=== PATIENT | female | born 1945 | race Caucasian/White ===

== ENCOUNTER → 2018-01-23 | Outpatient (REF) | payer MEDICARE, MEDICAID ==
[2018-01-23 14:43] LABS: ALBUMIN 3.8 GM/DL (3.2-5.2); ALBUMIN/GLOBULIN RATIO 1.09 (1.00-1.93); ALKALINE PHOSPHATASE 103 U/L (45-117); ALT/SGPT 30 U/L (12-78); ANION GAP 10 MEQ/L (8-16); AST/SGOT 28 U/L (7-37); BILIRUBIN,TOTAL 0.6 MG/DL (0.2-1.0); BLOOD UREA NITROGEN 39 MG/DL (7-18); CALCIUM LEVEL 8.8 MG/DL (8.8-10.2); CARBON DIOXIDE LEVEL 26 MEQ/L (21-32); CHLORIDE LEVEL 103 MEQ/L (98-107); CHOLESTEROL LEVEL 144 MG/DL (<200); CHOLESTEROL RISK RATIO 5.538 (<5); CREATININE FOR GFR 3.59 MG/DL (0.55-1.30); GLOMERULAR FILTRATION RATE 13.3 (>39); GLUCOSE, FASTING 83 MG/DL (70-100); HDL CHOLESTEROL 26 MG/DL (>40); LDL CHOLESTEROL 59.8 MG/DL (<100); NON-HDL-C 118 MG/DL; POTASSIUM SERUM 4.6 MEQ/L (3.5-5.1); SODIUM LEVEL 139 MEQ/L (136-145); TOTAL PROTEIN 7.3 GM/DL (6.4-8.2); TRIGLYCERIDES LEVEL 291 MG/DL (<150)
== END ==
LOC: M SFHCLACO 08:46
DX: E78.2 Mixed hyperlipidemia (principal); I12.9 Hypertensive chronic kidney disease with stage 1 through stage 4 chronic kidney disease, or unspecified chronic kidney disease; N18.3 Chronic kidney disease, stage 3 (moderate); E55.9 Vitamin D deficiency, unspecified
CPT/HCPCS: 80053

== ENCOUNTER → 2018-04-26 | Outpatient (REF) | payer MEDICARE, MEDICAID ==
[2018-04-26 15:28] LABS: ALBUMIN 3.5 GM/DL (3.2-5.2); ALBUMIN/GLOBULIN RATIO 0.95 (1.00-1.93); ALKALINE PHOSPHATASE 128 U/L (45-117); ALT/SGPT 25 U/L (12-78); ANION GAP 11 MEQ/L (8-16); AST/SGOT 27 U/L (7-37); BILIRUBIN,TOTAL 0.5 MG/DL (0.2-1.0); BLOOD UREA NITROGEN 38 MG/DL (7-18); CALCIUM LEVEL 8.8 MG/DL (8.8-10.2); CARBON DIOXIDE LEVEL 25 MEQ/L (21-32); CHLORIDE LEVEL 106 MEQ/L (98-107); CHOLESTEROL LEVEL 132 MG/DL (<200); CREATININE FOR GFR 3.13 MG/DL (0.55-1.30); GLOMERULAR FILTRATION RATE 15.6 (>39); GLUCOSE, FASTING 73 MG/DL (70-100); HDL CHOLESTEROL 30 MG/DL (>40); LDL CHOLESTEROL 64.4 MG/DL (<100); NON-HDL-C 102 MG/DL; SODIUM LEVEL 142 MEQ/L (136-145); TOTAL 25(OH) VITAMIN D 14.4 NG/ML (30.0-100.0); TOTAL PROTEIN 7.2 GM/DL (6.4-8.2); TRIGLYCERIDES LEVEL 188 MG/DL (<150)
== END ==
LOC: M SFHCLACO 08:06
DX: E78.2 Mixed hyperlipidemia (principal); I12.9 Hypertensive chronic kidney disease with stage 1 through stage 4 chronic kidney disease, or unspecified chronic kidney disease; N18.3 Chronic kidney disease, stage 3 (moderate); E55.9 Vitamin D deficiency, unspecified
CPT/HCPCS: 80053

== ENCOUNTER 2018-10-26 09:41 | Emergency (ER) | payer MEDICARE, MEDICAID ==
[2018-10-26] MEDS: ONDANSETRON 4 MG ORAL DISINTEGRATING TAB (Q0162 PER 1MG) PO (11:08)
[2018-10-26] MEDS: MORPHINE 2 MG/ML 1ML SYRINGE (J2270) IM (11:09)
== END 2018-10-26 11:57 | disposition home or self-care (01) ==
LOC: M ED 09:41
DX: G89.3 Neoplasm related pain (acute) (chronic) (principal); C41.9 Malignant neoplasm of bone and articular cartilage, unspecified; I10 Essential (primary) hypertension; E78.5 Hyperlipidemia, unspecified; J45.909 Unspecified asthma, uncomplicated; J44.9 Chronic obstructive pulmonary disease, unspecified; Z72.0 Tobacco use; Z79.899 Other long term (current) drug therapy
CPT/HCPCS: Q0162

== ENCOUNTER → 2018-11-19 | Outpatient (CLI) | payer MEDICARE, MEDICAID ==
[~2018-11-19] MED LIST: ALBU83IN INH; AMLO5TAB6 PO; ASTE0.15 NARES; ATIV1TAB10 PO; ATOR1TAB21 PO; FURO40TA2 PO; IMIT100T PO; LIDOCAINE 1% MDV 20ML VIAL As Ordered ONE; MECL1CHW2 PO; METO1TAB32 PO; NORCOTAB PO; OXYC-517 PO; PATA2.5S OP; PROAAER10 INH; PROC10TA4 PO; SYMB16INH INH; ZOFR4TAB14 PO; [UNRECOGNIZED DRUG - CODE] PO
--- NOTE | 2018-11-19 20:12 | REP ---
Focused right breast sonography: History: Right breast mass. Findings: An irregular spiculated hypoechoic to anechoic solid mass with acoustic shadowing is seen at the site of the palpable lump in the right breast eight o'clock position. This measures 2.7 x 2.8 x 2.0 cm. Ultrasound-guided needle biopsy will proceed. Impression: BIRADS category five highly suspicious focused right breast sonography. 2.8 cm mass 8 o'clock position right breast. Electronically Signed by Williams Valladares MD 11/19/2018 08:27 P
--- NOTE | 2018-11-19 20:19 | REP ---
ULTRASOUND GUIDED RIGHT BREAST BIOPSY The procedure was performed under the direct supervision of Dr. Valladares The patient has a history of the right breast mass seen on a previous CT scan from [facility] performed on 10/24/2018. The risks and benefits of the procedure were explained to the patient and informed consent was obtained. The right breast mass was localized using ultrasound guidance. The skin was prepped and draped in a sterile fashion. 1% Xylocaine was used as a local anesthetic. Using ultrasound guidance a 13-gauge suction assisted Mammotome needle was inserted and six core biopsy samples were obtained. A marker clip was placed at the biopsy site. The patient tolerated the procedure well and there were no immediate complications. After the appropriate amount of monitored convalescence the patient was discharged from the department. Reviewed by GATO Fields 11/19/2018 05:17 P Electronically Signed by Williams Valladares MD 11/19/2018 08:10 P
--- NOTE | 2018-11-19 23:13 | REP ---
DIGITAL DIAGNOSTIC UNILATERAL TWO-VIEW RIGHT BREAST MAMMOGRAM: HISTORY: Marker clip placement views. Patient is status post ultrasound-guided needle biopsy of a large mass seen on recent CT study. No comparison mammography. FINDINGS: CC and true ML views of the right breast demonstrate a needle biopsy marker clip in the medial periphery of a spiculated 3.6 x 3.1 x 2.3 cm mass in the lateral right breast at approximately 9-o'clock position. No hematoma is seen. The marker clip is in good position. There is an upper outer quadrant microcalcific grouping separate from the mass, suspicious for possible focus ductal carcinoma in situ as well. IMPRESSION: Needle biopsy marker clip in good position. BIRADS category 5 right breast mammogram. Highly suspicious findings. 3.6 cm spiculated mass. BI-RADS/ACR category 5 mammogram. Highly suggestive of malignancy - appropriate action should be taken. Requires biopsy or surgical treatment. This mammogram was interpreted with the aid of an FDA-approved computer-aided detection system. Electronically Signed by Williams Valladares MD 11/20/2018 10:45 A
== END ==
LOC: M RADPRO 08:31
PROVIDERS: ATTEND Internal Medicine Hematology & Oncology
DX: C50.511 Malignant neoplasm of lower-outer quadrant of right female breast (principal); Z79.899 Other long term (current) drug therapy
CPT/HCPCS: 19083; 36415; 76642; 77065; 86900; 86901; 86927; 88305; P9017